=== PATIENT | male | born 1960 | race African-American/Black ===

== ENCOUNTER 2017-03-01 16:49 | Emergency (ER) | payer SELFPAY ==
[~2017-03-01] VITALS: Ht 185.4 cm; Wt 104.5 kg
[2017-03-01] MEDS ORDERED: ASPIRIN 81 MG TABLET CHEW PO ONE (18:00)
[2017-03-01 18:25] LABS: BLOOD UREA NITROGEN 12 mg/dL (7-18)
[2017-03-01 18:32] LABS: ASPARTATE AMINO TRANSFERASE 30 U/L (15-37)
[2017-03-01 18:35] LABS: IS PT STATUS REG ER OR PRE ER? YES
[2017-03-01 19:20] VITALS: BP 128/91
== END 2017-03-01 19:59 | disposition home or self-care (01) ==
LOC: ED 19:53
DX: R05 Cough (principal); E78.00 Pure hypercholesterolemia, unspecified; I51.9 Heart disease, unspecified; I25.2 Old myocardial infarction; Z95.5 Presence of coronary angioplasty implant and graft
CPT/HCPCS: 36415; 71020; 80053; 84484; 85025; 93005

== ENCOUNTER 2017-05-15 16:27 | Emergency (ER) | payer MEDICAID ==
[~2017-05-15] VITALS: Ht 185.4 cm; Wt 88.9 kg
[2017-05-15 16:30] VITALS: BP 111/79
[2017-05-15] MEDS ORDERED: ASPIRIN 81 MG TABLET CHEW PO ONE (17:00)
[2017-05-15] MEDS ORDERED: SODIUM CHLORIDE FLUSH 10ML SYR IVF ONE (17:00)
== END 2017-05-15 20:10 | disposition left against medical advice (07) ==
LOC: ED 20:04
DX: R07.9 Chest pain, unspecified (principal); E11.9 Type 2 diabetes mellitus without complications; E78.00 Pure hypercholesterolemia, unspecified; I10 Essential (primary) hypertension; I25.2 Old myocardial infarction; Z95.5 Presence of coronary angioplasty implant and graft
CPT/HCPCS: 93005; 99283

== ENCOUNTER 2021-02-25 03:30 | Inpatient (IN) | payer MEDICAID, OTHER ==
[~2021-02-25] VITALS: Ht 185.4 cm; Wt 101.0 kg
[2021-02-25] MEDS ORDERED: MORPHINE SULFATE 4 MG/ML, 1ML ONE (03:43)
[2021-02-25] MEDS ORDERED: ONDANSETRON 2MG/ML, 2ML ONE (03:43)
[2021-02-25] MEDS ORDERED: ONDANSETRON 2MG/ML, 2ML IVPush ONE (04:00)
[2021-02-25] MEDS ORDERED: SODIUM CHLORIDE FLUSH 10ML SYR IVF ONE (04:00)
[2021-02-25] MEDS ORDERED: MORPHINE SULFATE 4 MG/ML, 1ML IVPush PRN (04:00)
[2021-02-25 04:05] LABS: BASOPHILS % (AUTO) 1 % (0-1); EOSINOPHILS % (AUTO) 5 % (1-7); LYMPHOCYTES % (AUTO) 35 % (22-44); MEAN CORPUSCULAR HEMOGLOBIN 26.7 pg (27.5-34.5); MEAN CORPUSCULAR HGB CONC 33.3 g/dL (33.2-36.2); MEAN PLATELET VOLUME 7.4 fL (7.4-10.4); MONOCYTES % (AUTO) 15 % (2-9); NEUTROPHILS % (AUTO) 45 % (42-75); PLATELET COUNT 268 x10^3/uL (130-400); RED BLOOD COUNT 5.66 x10^6/uL (4.38-5.82); RED CELL DISTRIBUTION WIDTH 15.9 % (9.4-14.8)
[2021-02-25 04:07] LABS: ALANINE AMINOTRANSFERASE 37 U/L (12-78); ALBUMIN 3.3 g/dL (3.4-5.0); ANION GAP 4 mmol/L (5-15); CALCIUM 8.7 mg/dL (8.5-10.1); CHLORIDE 110 mmol/L (98-107); CREATININE 0.98 mg/dL (0.7-1.3)
[2021-02-25 04:09] LABS: MD NO
[2021-02-25 04:10] LABS: ALKALINE PHOSPHATASE 69 U/L (45-117); BILIRUBIN,TOTAL 0.6 mg/dL (0.2-1.0); TOTAL PROTEIN 7.2 g/dL (6.4-8.2); TROPONIN I < 0.015 ng/mL (0.000-0.045)
[2021-02-25] MEDS ORDERED: morphine SULFATE 10 MG/ML, 1ML IV PRN (04:30)
[2021-02-25] MEDS ORDERED: NITROGLYCERIN 0.4 MG/SPRAY SL PRN (04:30)
[2021-02-25] MEDS ORDERED: NITROGLYCERIN 0.4 MG BOTTLE (25 TABS) SL PRN (04:30)
[2021-02-25] MEDS ORDERED: ACETAMINOPHEN 325 MG TABLET ONE (04:38)
[2021-02-25] MEDS: ACETAMINOPHEN 325 MG TABLET PO PRN (04:40)
--- NOTE | 2021-02-25 04:53 | NUR ---
Report given to ARIAN Toney. Patient to be transferred to room 501.
[2021-02-25 05:27] VITALS: BP 156/108
[2021-02-25] MEDS ORDERED: TOPROL XL (05:30)
[2021-02-25 06:01] VITALS: BP 141/88
[2021-02-25 07:25] VITALS: BP 156/93
[2021-02-25 08:17] LABS: CHOLESTEROL, TOTAL 200 mg/dL (140-239); TRIGLYCERIDES 70 mg/dL (50-200); VLDL CHOLESTEROL 14 mg/dL (0-25)
[2021-02-25 08:20] LABS: CHOL/HDL RATIO 2.3; HDL CHOL % 43 % (26-37); HDL CHOLESTEROL (DIRECT) 86 mg/dL (40-60); LDL CHOLESTEROL,CALCULATED 100 mg/dL (54-169); LDL/HDL RATIO 1.2 (0.5-3.0); TROPONIN I < 0.015 ng/mL (0.000-0.045)
[2021-02-25] MEDS: ATORVASTATIN 40 MG TABLET PO SCH ×2 (08:48→20:00)
[2021-02-25] MEDS: LISINOPRIL 10 MG TABLET PO SCH ×2 (08:48→20:00)
[2021-02-25] MEDS: SODIUM CHLORIDE FLUSH 10ML SYR IVF SCH ×2 (08:49→20:00)
[2021-02-25] MEDS: HYDROcodone/APAP 5/325 TABLET PO PRN (08:54)
[2021-02-25] MEDS ORDERED: ISOSORBIDE MONONITRATE ER 30 MG TABLET PO SCH (09:00)
[2021-02-25 10:24] LABS: TROPONIN I < 0.015 ng/mL (0.000-0.045)
[2021-02-25] MEDS ORDERED: REGADENOSON 0.4 MG/5 ML SYRINGE ONE (11:19)
[2021-02-25 12:38] VITALS: BP 144/74
[2021-02-25] MEDS: KETOROLAC 30 MG/1 ML IM PRN ×2 (14:03→21:38)
[2021-02-25] MEDS ORDERED: METOPROLOL 1 MG/ML, 5ML ONE (15:48)
[2021-02-25] MEDS ORDERED: METOPROLOL 1 MG/ML, 5ML IVPush ONE (16:00)
[2021-02-25] MEDS: HEPARIN 5,000 UNITS/ML, 1ML SQ SCH ×2 (17:17→23:55)
[2021-02-25 20:01] VITALS: BP 128/79
[2021-02-25] MEDS ORDERED: METOPROLOL TARTRATE 25 MG TAB PO SCH (21:00)
[2021-02-26] MEDS: ACETAMINOPHEN 325 MG TABLET PO PRN ×3 (00:56→20:12)
[2021-02-26] MEDS: HYDROcodone/APAP 5/325 TABLET PO PRN ×3 (00:57→20:12)
[2021-02-26 01:00] VITALS: BP 122/76
[2021-02-26 05:07] LABS: MEAN CORPUSCULAR HEMOGLOBIN 26.6 pg (27.5-34.5); MEAN CORPUSCULAR HGB CONC 33.4 g/dL (33.2-36.2); MEAN PLATELET VOLUME 7.6 fL (7.4-10.4); PLATELET COUNT 265 x10^3/uL (130-400); RED BLOOD COUNT 5.31 x10^6/uL (4.38-5.82)
[2021-02-26 05:13] LABS: ANION GAP 4 mmol/L (5-15); CALCIUM 8.8 mg/dL (8.5-10.1); CHLORIDE 106 mmol/L (98-107)
[2021-02-26 05:14] LABS: CREATININE 1.06 mg/dL (0.7-1.3)
[2021-02-26] MEDS: KETOROLAC 30 MG/1 ML IM PRN (05:34)
[2021-02-26] MEDS: OMEPRAZOLE 20 MG CAPSULE.DR PO SCH (05:34)
[2021-02-26] MEDS ORDERED: ASPIRIN 325 MG TABLET EC PO SCH (06:00)
[2021-02-26] MEDS ORDERED: ASPIRIN 325 MG TABLET PO SCH (06:00)
[2021-02-26 07:34] VITALS: BP 149/82
[2021-02-26] MEDS: SODIUM CHLORIDE FLUSH 10ML SYR IVF SCH ×2 (08:30→20:25)
[2021-02-26] MEDS: HEPARIN 5,000 UNITS/ML, 1ML SQ SCH ×2 (08:30→16:25)
[2021-02-26] MEDS: METOPROLOL SUCCINATE 25 MG TAB.ER.24H PO SCH (08:30)
[2021-02-26] MEDS: LISINOPRIL 10 MG TABLET PO SCH ×2 (08:30→20:12)
[2021-02-26] MEDS: SPIRONOLACTONE 25 MG TABLET PO SCH (08:30)
[2021-02-26 14:07] VITALS: BP 153/87
[2021-02-26 19:00] VITALS: BP 164/95
[2021-02-26] MEDS: ATORVASTATIN 40 MG TABLET PO SCH (20:12)
[2021-02-27] VITALS (11 sets, daily range): BP systolic 136–198; BP diastolic 89–136
[2021-02-27] MEDS ORDERED: ENALAPRILAT 1.25 MG/ML, 1ML IV PRN (01:00)
[2021-02-27] MEDS ORDERED: METOPROLOL SUCCINATE 25 MG TAB.ER.24H PO ONE (02:00)
[2021-02-27] MEDS: METOPROLOL SUCCINATE 25 MG TAB.ER.24H PO SCH (06:21)
[2021-02-27] MEDS: ASPIRIN 81 MG TABLET EC PO SCH (06:21)
[2021-02-27] MEDS: OMEPRAZOLE 20 MG CAPSULE.DR PO SCH (06:21)
[2021-02-27] MEDS: ACETAMINOPHEN 325 MG TABLET PO PRN ×2 (06:21→23:11)
[2021-02-27] MEDS: SPIRONOLACTONE 25 MG TABLET PO SCH (08:17)
[2021-02-27] MEDS: LISINOPRIL 10 MG TABLET PO SCH (08:17)
[2021-02-27] MEDS: SODIUM CHLORIDE FLUSH 10ML SYR IVF SCH ×2 (08:17→20:25)
[2021-02-27] MEDS: HEPARIN 5,000 UNITS/ML, 1ML SQ SCH ×3 (08:17→17:09)
[2021-02-27] MEDS: KETOROLAC 30 MG/1 ML IM PRN (08:42)
[2021-02-27] MEDS ORDERED: hydrALAzine 20 MG/ML, 1ML IV PRN (11:00)
[2021-02-27] MEDS ORDERED: METOPROLOL 1 MG/ML, 5ML IVPush PRN (11:00)
[2021-02-27] MEDS ORDERED: LISINOPRIL 10 MG TABLET PO ONE (11:00)
[2021-02-27] MEDS: CARVEDILOL 6.25 MG TABLET PO SCH (17:09)
[2021-02-27] MEDS: ATORVASTATIN 40 MG TABLET PO SCH (20:13)
[2021-02-27] MEDS: LISINOPRIL 20 MG TABLET PO SCH (20:13)
[2021-02-28] MEDS: HEPARIN 5,000 UNITS/ML, 1ML SQ SCH ×2 (00:11→10:09)
[2021-02-28 00:12] VITALS: BP 144/87
[2021-02-28 05:16] LABS: BASOPHILS % (AUTO) 1 % (0-1); EOSINOPHILS % (AUTO) 5 % (1-7); LYMPHOCYTES % (AUTO) 27 % (22-44); MEAN CORPUSCULAR HEMOGLOBIN 26.2 pg (27.5-34.5); MEAN CORPUSCULAR HGB CONC 32.9 g/dL (33.2-36.2); MEAN PLATELET VOLUME 7.7 fL (7.4-10.4); MONOCYTES % (AUTO) 15 % (2-9); NEUTROPHILS % (AUTO) 52 % (42-75); PLATELET COUNT 280 x10^3/uL (130-400); RED BLOOD COUNT 5.85 x10^6/uL (4.38-5.82); RED CELL DISTRIBUTION WIDTH 15.8 % (9.4-14.8)
[2021-02-28 05:27] LABS: ANION GAP 6 mmol/L (5-15); CALCIUM 8.7 mg/dL (8.5-10.1); CHLORIDE 108 mmol/L (98-107)
[2021-02-28 05:29] LABS: CREATININE 0.82 mg/dL (0.7-1.3)
[2021-02-28] MEDS: ASPIRIN 81 MG TABLET EC PO SCH (05:41)
[2021-02-28] MEDS: OMEPRAZOLE 20 MG CAPSULE.DR PO SCH (05:41)
[2021-02-28] MEDS: CARVEDILOL 6.25 MG TABLET PO SCH (05:43)
[2021-02-28 06:30] VITALS: BP 138/94
[2021-02-28 06:38] LABS: MD SCAN
[2021-02-28] MEDS ORDERED: OMEP-110 PO (08:48)
[2021-02-28] MEDS ORDERED: LISI-170 PO (08:48)
[2021-02-28] MEDS ORDERED: ATOR40TA78 PO (08:48)
[2021-02-28] MEDS ORDERED: CARV6.2512 PO (08:48)
[2021-02-28] MEDS ORDERED: ASPI81TA45 PO (08:48)
[2021-02-28] MEDS ORDERED: SPIR25TA PO (08:48)
[2021-02-28] MEDS: SODIUM CHLORIDE FLUSH 10ML SYR IVF SCH (10:08)
[2021-02-28] MEDS: LISINOPRIL 20 MG TABLET PO SCH (10:09)
[2021-02-28] MEDS: SPIRONOLACTONE 25 MG TABLET PO SCH (10:09)
[2021-02-28] MEDS: ACETAMINOPHEN 325 MG TABLET PO PRN (10:18)
[2021-02-28 12:29] VITALS: BP 151/97
[2021-02-28] MEDS ORDERED: SUMATRIPTAN 25 MG TABLET PO PRN (12:30)
[2021-02-28] MEDS ORDERED: SUMATRIPTAN 50 MG TABLET ONE (14:16)
== END 2021-02-28 14:30 | disposition home or self-care (01) | DRG 313 ==
LOC: ED 04:12 → EDIP 04:41 → 5SO 05:28 → OBSVTOIN 02-27 11:22
PROVIDERS: ADMIT Family Medicine; ATTEND Family Medicine
DX: R07.9 Chest pain, unspecified (principal); I42.9 Cardiomyopathy, unspecified; I47.1 Supraventricular tachycardia; I70.0 Atherosclerosis of aorta; I34.0 Nonrheumatic mitral (valve) insufficiency; I25.10 Atherosclerotic heart disease of native coronary artery without angina pectoris; I10 Essential (primary) hypertension; G43.C0 Periodic headache syndromes in child or adult, not intractable; G43.909 Migraine, unspecified, not intractable, without status migrainosus; E78.5 Hyperlipidemia, unspecified; Z87.891 Personal history of nicotine dependence; Z95.5 Presence of coronary angioplasty implant and graft; I25.2 Old myocardial infarction
CPT/HCPCS: 36415; 70450; 71045; 78452; 80048; 80053; 80061; 84484; 85025; 85027; 93005; 93017; 93306; 96374; 96375; 99285; G0378; J1644; J1885; J2405; J2785; A9502; J2270

== ENCOUNTER 2021-04-29 14:21 | Emergency (ER) | payer MEDICAID, OTHER ==
[~2021-04-29] VITALS: Ht 185.4 cm; Wt 102.7 kg
[~2021-04-29 14:21] MED LIST: ASPI81TA45 PO; ATOR40TA78 PO; CARV6.2512 PO; LISI-170 PO; OMEP-110 PO; SPIR25TA PO; TOPROL XL
[2021-04-29 14:28] VITALS: BP 140/92
== END 2021-04-29 15:19 | disposition home or self-care (01) ==
LOC: ED 15:00
DX: E11.9 Type 2 diabetes mellitus without complications (principal); Z76.0 Encounter for issue of repeat prescription; I25.2 Old myocardial infarction; I11.9 Hypertensive heart disease without heart failure; E78.00 Pure hypercholesterolemia, unspecified; Z98.61 Coronary angioplasty status
CPT/HCPCS: 99281